=== PATIENT | male | born 1965 | race Caucasian/White ===

== ENCOUNTER → 2020-01-16 | Outpatient (CLI) | payer OTHER ==
--- NOTE | 2020-01-19 09:10 | CT ---
EXAM: Chest w/o Contrast CLINICAL HISTORY: CHRONIC OBSTRUCTIVE PULMONARY DISEASE COMPARISON STUDY: None. TECHNICAL: Pre and post contrast CT images were performed through the chest. No prior study for comparison. FINDINGS: Soft tissue or mediastinal windows demonstrate no mass or lymphadenopathy. The heart is not enlarged. The aorta is non-dilated. There is no sign of an aortic dissection. The pulmonary arterial system as imaged is negative. The limited images of the upper abdomen are negative. Pulmonary parenchymal windows show no mass, consolidation, interstitial pulmonary edema, or pleural effusion. There are benign calcified granulomata bilateral. The lungs are hyperexpanded and demonstrate moderate to severe emphysematous changes. A small peripheral area of atelectasis is seen in the lateral aspect of the left lower lobe, anterior aspect of the right middle lobe and anterior aspect of both upper lobes. The trachea and bronchial structures are negative. IMPRESSION: 1. Moderate to severe emphysematous changes of the pulmonary parenchyma without a suspicious nodule, mass or lymphadenopathy. 2. Benign bilateral calcified granulomata are noted. This exam was performed according to our departmental dose-optimization program, which includes automated exposure control, adjustment of the mA and/or kV according to patient size and/or use of iterative reconstruction technique. Electronically signed by: Humberto Rogers MD 01/19/2020 9:09 AM CDT
== END ==
LOC: CT 10:08
PROVIDERS: ATTEND Family Medicine
DX: J43.9 Emphysema, unspecified (principal); J84.10 Pulmonary fibrosis, unspecified